=== PATIENT | female | born 2000 | race Caucasian/White ===

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

== ENCOUNTER → 2023-08-31 | Outpatient (CLI) | payer BC ==
[~2023-08-31] MED LIST changes: +IBUP600 PO; +METPRE4DP PO
== END ==
LOC: LAB 17:00 → LAB SHORT 17:00
DX: R12 Heartburn (principal)
CPT/HCPCS: 87338

== ENCOUNTER 2024-07-23 19:39 | Emergency (ER) | payer BC ==
[~2024-07-23] VITALS: Ht 170.2 cm; Wt 74.8 kg
[2024-07-23] MEDS ORDERED: SPIRONOLACTONE50 MG PO (19:46)
[2024-07-23 20:01] LABS: BASOPHILS ABSOLUTE AUTO 0.06 K/mm3 (0.00-0.23); BASOPHILS PERCENT AUTO 1 % (0-2); EOSINOPHILS ABSOLUTE AUTO 0.15 K/mm3 (0.00-0.68); EOSINOPHILS PERCENT AUTO 2 % (0-6); Hemoglobin 13.7 g/dL (11.5-16.0); IMMATURE GRAN ABSOLUTE AUTO 0.01 K/mm3 (0.00-0.10); IMMATURE GRAN PERCENT AUTO 0 % (0-1); LYMPHOCYTES ABSOLUTE AUTO 2.32 K/mm3 (0.84-5.20); LYMPHOCYTES PERCENT AUTO 35 % (21-46); MONOCYTES ABSOLUTE AUTO 0.52 K/mm3 (0.16-1.47); MONOCYTES PERCENT AUTO 8 % (4-13); Mean Corpuscular HGB 30.9 pg (26.0-34.0); Mean Corpuscular HGB Conc 33.4 g/dL (31.5-36.5); Mean Corpuscular Volume 93 fL (80-100); NEUTROPHILS ABSOLUTE AUTO 3.57 K/mm3 (1.96-9.15); NEUTROPHILS PERCENT AUTO 54 % (41-73); Platelet Count 273 K/mm3 (150-400); RDW Coefficient Variation 11.9 % (11.7-14.2); RDW Standard Deviation 40.9 fL (35.1-46.3); Red Blood Cell Count 4.43 M/mm3 (3.80-5.20); White Blood Cell Count 6.63 K/mm3 (4.00-11.30)
[2024-07-23 20:34] LABS: Albumin, Blood 4.1 g/dL (3.4-5.0); Albumin/Globulin Ratio 1.3 (0.8-1.8); Bilirubin, Total 0.3 mg/dL (0.1-1.0); Bun/Creatinine Ratio 13.4 (12.0-20.0); Calcium, Blood 9.3 mg/dL (8.5-10.1); Creatinine, Blood 1.19 mg/dL (0.40-1.00); Globulin, Blood 3.2 g/dL (2.2-4.0); Potassium, Blood 4.2 mmol/L (3.5-5.5); Total Protein, Blood 7.3 g/dL (6.4-8.2)
[2024-07-23] MEDS ORDERED: Lidocaine 4% 1 Patch TOP ONE (22:20)
[2024-07-23] MEDS ORDERED: Prochlorperazine Edisylate 10 mg Vial IV ONE (22:20)
[2024-07-23] MEDS ORDERED: DiphenhydrAMINE HCl 50 MG/ML 1ML Vial IV ONE (22:20)
[2024-07-23] MEDS ORDERED: Ketorolac Tromethamine 15mg Vial IV ONE (22:20)
[2024-07-23] MEDS ORDERED: ASPERFLEX1 EACH TOP ×2 (22:30→22:35)
[2024-07-23] MEDS ORDERED: Robaxin750 MG PO ×2 (22:31→22:35)
[2024-07-23 23:34] VITALS: BP 110/98
== END 2024-07-23 23:48 | disposition home or self-care (01) ==
LOC: ER 19:39
PROVIDERS: Student in an Organized Health Care Education/Training Program
DX: G44.209 Tension-type headache, unspecified, not intractable (principal); Z79.899 Other long term (current) drug therapy
CPT/HCPCS: 70450; 80053; 85025; 96374; 96375; 99284-25; A9270; J0780; J1200; J1885